=== PATIENT | male | born 1965 | race Caucasian/White ===

== ENCOUNTER 2016-06-25 08:14 | Observation (INO) | payer BC ==
[~2016-06-25] VITALS: Ht 172.7 cm; Wt 116.0 kg
[2016-06-25] MEDS ORDERED: ASPIRIN325 MG PO (08:51)
[2016-06-25] MEDS ORDERED: TYLENOL EXTRA500 MG PO (08:52)
[2016-06-25 09:54] LABS: HEMATOCRIT 48.1 % (38.0-50.0); MCH 31.8 PG (29.0-34.0); MCHC 34.9 G/DL (30.0-36.0); MCV 90.9 FL (86-99); MEAN PLAT.VOLUME 9.5 uM^3 (9.0-12.4); PLATELET COUNT 141 K/uL (156-360); RBC DIS.WIDTH-CV 12.7 % (11.8-14.6); RBC DIS.WIDTH-SD 41.1 % (39-53); RED BLOOD COUNT 5.29 M/uL (4.00-5.50); WHITE BLOOD COUNT 8.4 K/uL (4.1-10.2)
[2016-06-25 10:02] LABS: CHLORIDE 103 mEq/L (99-109); POTASSIUM 4.2 mEq/L (3.7-5.4); SODIUM 138 mEq/L (136-147)
[2016-06-25 10:04] LABS: GLUCOSE 123 mg/dL (70-99)
[2016-06-25 10:05] LABS: ANION GAP 10 MEQ/L (2-14)
[2016-06-25 10:08] LABS: GFR ESTIMATE (CALCULATED) > 59 mL/min/
[2016-06-25 10:09] LABS: UREA NITROGEN (BUN) 9 mg/dL (9-23)
[2016-06-25 10:15] LABS: TROP-I INTERPRETATION NEGATIVE; TROPONIN-I < 0.01 ng/mL (0.0-0.30)
[2016-06-25] MEDS ORDERED: DAILY VALUE1 EACH PO (11:45)
[2016-06-25 13:26] VITALS: BP 124/72
[2016-06-25 14:37] LABS: Estimated Average Glucose 114 mg/dL (70-123); HEMOGLOBIN A1c (GLYCOHEMOGLOB) 5.6 % HGB (Below 5.7)
[2016-06-25 15:13] VITALS: BP 138/84
[2016-06-25 16:27] LABS: HDL CHOLESTEROL 37 MG/DL (Desirable>=40); NON-HDL CHOLESTEROL 158 mg/dL (Desirable<160); SAMPLE HEMOLYSIS CHECK 0; SAMPLE ICTERIC CHECK 0; SAMPLE LIPEMIA CHECK 0; TOTAL CHOLESTEROL 195 mg/dL (Desirable<200); TRIGLYCERIDES 464 MG/DL (Normal: <150)
[2016-06-25 17:11] LABS: TROP-I INTERPRETATION NEGATIVE; TROPONIN-I 0.01 ng/mL (0.0-0.30)
[2016-06-25 20:00] VITALS: BP 126/78; BP 140/76
[2016-06-25 22:54] LABS: TROP-I INTERPRETATION NEGATIVE; TROPONIN-I < 0.01 ng/mL (0.0-0.30)
[2016-06-25 23:33] VITALS: BP 123/71
[2016-06-26 03:53] VITALS: BP 123/74
[2016-06-26] MEDS ORDERED: HYDROCHLOROTH12.5 M3 PO (08:28)
[2016-06-26] MEDS ORDERED: TRICOR145 MG PO (08:47)
[2016-06-26 09:28] VITALS: BP 142/92
== END 2016-06-26 10:03 | disposition home or self-care (01) ==
LOC: EME 08:14 → EDOF 11:20 → 5WEST 13:19
PROVIDERS: Internal Medicine
DX: R07.9 Chest pain, unspecified (principal); R94.31 Abnormal electrocardiogram [ECG] [EKG]; I16.0 Hypertensive urgency; I10 Essential (primary) hypertension; D69.6 Thrombocytopenia, unspecified; E78.1 Pure hyperglyceridemia; E66.01 Morbid (severe) obesity due to excess calories; Z68.38 Body mass index [BMI] 38.0-38.9, adult
CPT/HCPCS: 71020; 80048; 80061; 83036; 84443; 84484; 85027; 93005; 99281; 99285; G0378; J1650